=== PATIENT | male | born 1955 | race Caucasian/White ===

== ENCOUNTER 2017-06-19 22:05 | Emergency (ER) | payer OTHER ==
--- NOTE | ~2017-06-19 | ER ---
ADMIT: 06/19/2017 RM/LOC: ER [facility] MR#: [id number] [place], [place] [id number] [place] [place] [id number] Emergency Room Report SEX: M AGE: 62 : 1955 DATE: 06/19/2017 CHIEF COMPLAINT: Loss of vision in right eye. HISTORY OF PRESENT ILLNESS: The patient is a 62-year-old male, otherwise healthy, other than some hypertension, comes in complaining of acute-onset loss of vision in his right eye. He states he is here from [facility], working at [employer]. He was out with some friends, having some food, and having several drinks at the bar when he immediately developed loss of vision in his right eye which was painless. This happened about 30 minutes prior to arrival, and he has had no change in his vision since then. He still has no pain. He had no injury or trauma, and otherwise, he has been feeling completely at his baseline. REVIEW OF SYSTEMS: Denies any chest pain, shortness of breath, abdominal pain, nausea, vomiting, recent fevers or chills or malaise. PAST MEDICAL HISTORY: Hypertension. MEDICATIONS: See nurse's note. ALLERGIES: SEE NURSE'S NOTE. 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 PHYSICAL EXAMINATION: HEENT: Head is atraumatic. Pupils show that he has decreased reaction to light on his right pupil with direct light but does have afferent pupillary reflex when he has light shined in his left eye. His extraocular muscles are intact bilaterally. He has no injection or signs of trauma on either eye. He does have a brown red ring around his fovea on his right eye. Visual acuity was 20/20 in the left eye with correction and 0 in the right. NEUROLOGIC: Cranial nerves are intact. No signs of facial weakness. He has good strength and sensation in all 4 extremities. HEART: Regular rate and rhythm. LUNGS: Clear to auscultation. EMERGENCY DEPARTMENT COURSE: I contacted Dr. Pena who was on for Ophthalmology, came and saw the patient. She evaluated the patient and has ADMIT: 06/19/2017 RM/LOC: ER [facility] MR#: [id number] [address] [id number] [place] [place] [address] Emergency Room Report SEX: M AGE: 62 : 1955 diagnosed him with acute occlusion of his retinal artery. Based on her evaluation, she believes he has a quite poor prognosis due to his degree of blindness in that eye. She has ordered some labs which are currently pending; a CRP, sedimentation rate, coags. Plan at this time is to start the patient on Alphagan drops and aspirin. She is going to be contacting the patient's primary care physician when their office is open tomorrow and to find a retinal specialist where he lives as he is planning on going home tomorrow to [place]. The patient is given disposition by Dr. Pena and told if he has any worsening or concerning symptoms to return to the ER. 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 Bryan Us MD/ bess JOB #: [id number] CC: Bryan Us MD, Attending Physician Adrianna Pena MD, Family Physician
== END 2017-06-20 01:00 | disposition home or self-care (01) ==
LOC: ER 22:05
DX: H34.11 Central retinal artery occlusion, right eye (principal); I10 Essential (primary) hypertension; Z79.899 Other long term (current) drug therapy